=== PATIENT | female | born 1980 | race Caucasian/White ===

== ENCOUNTER 2021-03-01 16:18 | Emergency (ER) | payer MEDICAID ==
[~2021-03-01] VITALS: Ht 162.6 cm; Wt 99.8 kg
[2021-03-01 16:20] VITALS: BP_SYST 132
[2021-03-01] MEDS ORDERED: EPINEPHrine 1 MG/ML AMP IM ONE (16:45)
[2021-03-01] MEDS ORDERED: OLOPATADINE HCL Non-Formulary 5 ML DROPS OP ONE (16:45)
[2021-03-01] MEDS ORDERED: NAPHAZOLINE HCL/PHENIRAMINE 15 ML OPHT. DROPS OP ONE (17:00)
[2021-03-01] MEDS ORDERED: FLUORESCEIN SODIUM 1 MG OPHTHALMIC STRIP OP ONE (18:15)
[2021-03-01] MEDS ORDERED: TETRACAINE HCL/PF 0.5% OPHTHALMIC DROPS 4 ML OP ONE (18:15)
[2021-03-01] MEDS ORDERED: SULF5DRO LEFT EYE (18:34)
[2021-03-01] MEDS ORDERED: LORA10TA68 PO (18:34)
[2021-03-01] MEDS ORDERED: OLOP5DRO15 LEFT EYE (18:34)
[2021-03-01 19:12] VITALS: BP_SYST 132
== END 2021-03-01 19:12 | disposition home or self-care (01) ==
LOC: SED 16:18
DX: H10.9 Unspecified conjunctivitis (principal); J30.9 Allergic rhinitis, unspecified
CPT/HCPCS: 96372; 99283